=== PATIENT | male | born 1985 | race Caucasian/White ===

== ENCOUNTER 2018-12-23 14:24 | Emergency (ER) | payer BC ==
[2018-12-23 14:30] VITALS: BMI 27.2
[2018-12-23 17:12] LABS: BASO % 0.6 % (0-2.0); EOS % 1.9 % (0-4.5); HEMATOCRIT 45.2 % (35.4-49); HEMOGLOBIN 14.5 GM/dL (11.7-16.9); LYMPH % 23.9 % (8-40); MCH 24.5 pg (25.7-33.7); MCHC 32.1 g/dl (32.0-35.9); MEAN CELL VOLUME 76.1 fl (80-96); MEAN PLT VOLUME 9.6 fl (7.5-11.1); MONO % 10.5 % (3.8-10.2); NEUT % 63.1 % (42.8-82.8); PLATELET COUNT 235 K/MM3 (134-434); RBC 5.95 M/mm3 (4.00-5.60); RDW 15.2 % (11.9-15.9); WHITE BLOOD COUNT 5.2 K/mm3 (4.0-10.0)
--- NOTE | 2018-12-23 17:19 | PDOC ---
History of Present Illness - General Chief Complaint: Pain Stated Complaint: ABD PAIN/BACK PAIN Time Seen by Provider: 12/23/18 15:50 History Source: Patient Exam Limitations: Language Barrier ([employer] [id number]) Past History - Past Medical History Allergies/Adverse Reactions: Allergies Allergy/AdvReac Type Severity Reaction Status Date / Time No Known Allergies Allergy Verified 12/23/18 14:30 Home Medications: Ambulatory Orders NK [No Known Home Medication] 12/23/18 COPD: No - Psycho Social/Smoking Cessation Hx Smoking History: Never smoked Information on smoking cessation initiated: No Hx Alcohol Use: No Drug/Substance Use Hx: No Review of Systems - Review of Systems Able to Perform ROS?: Yes Is the patient limited Cymro proficient: Yes *Physical Exam - Vital Signs Last Vital Signs Temp Pulse Resp BP Pulse Ox 98.4 F 96 H 19 136/77 99 12/23/18 14:29 12/23/18 14:29 12/23/18 14:29 12/23/18 14:29 12/23/18 14:29 ED Treatment Course - LABORATORY CBC & Chemistry Diagram: 12/23/18 16:55 12/23/18 16:55 Medical Decision Making - Medical Decision Making 12/23/18 17:18 HPI: 33M no PMH presenting w/ abdominal pain for 1 day and 3 weeks of upper back pain. Abdominal pain described as increasing in pain, colicky, and covers entire abdomen but worse on right. Endorses SHANEKA and nausea, +etoh use (5 beers/ day). Denies f/c, vomiting, diarrhea, dysuria. No prior abdomen surgery. Pt endorses eating out frequently, and daughter are sick. Upper back pain only present when patient coughs or sneezes. No recent trauma or falls. No numbness/tingling. No chest pain or SOB. PMH: denies No PCP SH: etoh (5 beer / day), denies other drugs, not current smoker ROS: CONSTITUTIONAL: Denies F / C RESP: Denies SOB CARD: Denies chest pain, palpitations GI: see HPI : see HPI; endorses 1 year of nocturia NEURO: Denies numbness, tingling, weakness PE: GEN: NAD, comfortable. AAOx3 HEENT: NC/AT, EOMI. No facial asymmetry. Normal voice. Supple neck w/ FROM. CV: S1/S2, RRR, no m/r/g LUNG: CTAB, no wheezes, crackles, rales, rhonchi. GI: +RCVAT. +TTP LLQ, epigastrum, RUQ, RLQ; worse in RUQ. +BS. ND. EXTREMITIES: No LE edema. No obvious deformities of all extremities. SKIN: warm, dry, normal turgor PSYCH: normal mood and affect NEURO: Moving all extremities well. BACK: + midline and paraspinal TTP in thoracic/lumbar region. No step-offs. MDM: 33M w/o known PMH presenting with 1 day of abdomen pain. Endorses 5 beers a day. DDx cholecystitis, pancreatitis, renal stone Given chronicity of back symptoms and fact they are not generally not present, low suspicion of acute process. Abdominal Pain - cbc, cmp, lipase, amylase - RUQ US - consider CT - IV fluids, pain control, zofran 12/23/18 18:19 Patient reassessed, pain decreased subjectively and on exam; still present Labs reviewed, reassuring and not concerning for pancreatitis, cholecystitis, or infection/inflammation - obtain CT A/P 12/23/18 20:23 CT report demonstrates no acute pathology Patient states decreasing abdomen pain DC home w/ return precautions and referral to [facility]. Discharge - Discharge Information Problems reviewed: Yes Clinical Impression/Diagnosis: Abdominal pain Qualifiers: Abdominal location: right upper quadrant Qualified Code(s): R10.11 - Right upper quadrant pain Condition: Improved - Follow up/Referral - Patient Discharge Instructions Patient Printed Discharge Instructions: DI for Abdominal Pain-Adult Additional Instructions: You were seen and examined in the Emergency Department. You may take tylenol or motrin for pain. You may try to eat small bites and progress as you can. Please call [phone] and make an appointment with the [facility]. Follow up with these primary care doctors in the next 3 days. IMMEDIATELY return to the ED if you experience any of the following: - increasing abdominal pain - inability to eat or drink - severe vomiting - ANYTHING that concerns you Fuiste visto y examinado en el departamento de emergencias. Puede adiel tylenol o motrin para el dolor. Puede intentar comer bocados pequeos y progresar lo ms que pueda. Llame al [phone] y edward yaneth chava con el [facility]. Edward un seguimiento con estos mdicos de atencin primaria en los prximos 3 walker. INMEDIATAMENTE regrese al ED si experimenta alguno de los siguientes sntomas: - aumento del dolor abdominal - incapacidad para comer o beber - vmitos severos - CUALQUIER COSA que te preocupe - Post Discharge Activity Work/Back to School Note: Back to Work
[2018-12-23] MEDS ORDERED: ACETAMINOPHEN 1000 MG/100 ML VIAL (NON FORMULARY) IVPB ONE (17:24)
[2018-12-23] MEDS ORDERED: SODIUM CHLORIDE 0.9% 500 ML INFUS.BAG IV ONE (17:24)
[2018-12-23] MEDS ORDERED: ONDANSETRON 4 MG/2 ML VIAL IVPUSH ONE (17:24)
[2018-12-23] MEDS ORDERED: ONDANSETRON 4 MG/2 ML VIAL ONE (17:28)
[2018-12-23] MEDS ORDERED: ACETAMINOPHEN INJECTION 100 ML IVPB ONE (17:28)
[2018-12-23 17:42] LABS: ALBUMIN 4.4 g/dl (3.4-5.0); BILIRUBIN,TOTAL 1.1 mg/dL (0.2-1); BLOOD UREA NITROGEN 15.3 mg/dL (7-18); CALCIUM 9.6 mg/dL (8.5-10.1); CREATININE 0.9 mg/dL (0.55-1.3); POTASSIUM 4.4 mmol/L (3.5-5.1)
[2018-12-23 17:55] LABS: URINE APPEARANCE Clear; URINE BILIRUBIN Negative (NEGATIVE); URINE COLOR Yellow; URINE GLUCOSE (UA) Negative (NEGATIVE); URINE KETONE Negative (NEGATIVE); URINE LEUK ESTERASE Negative (NEGATIVE); URINE NITRITE Negative (NEGATIVE); URINE PROTEIN Negative (NEGATIVE); URINE UROBILINOGEN 0.2 mg/dL (0.2-1.0)
[2018-12-23 18:21] LABS: EPI CELLS 1 /HPF (0-5/HPF); URINE RBC 2 /hpf (0-4); URINE WBC 1 /hpf (0-5)
--- NOTE | 2018-12-23 19:27 | PDOC ---
Documentation entered by Nelly Montalvo SCRIBE, acting as scribe for Manju Honeycutt MD. Manju Honeycutt MD: This documentation has been prepared by the [place] Brenda, SCRIBE, under my direction and personally reviewed by me in its entirety. I confirm that the documentation accurately reflects all work, treatment, procedures, and medical decision making performed by me. Attending Attestation - Resident Resident Name: Raymond Damon - ED Attending Attestation I have performed the following: I have examined & evaluated the patient, The case was reviewed & discussed with the resident, I agree w/resident's findings & plan, Exceptions are as noted - HPI HPI: 12/23/18 17:24 33-year-old male presents with nausea and vomiting. He denies any significant past medical history. He does drink on a daily basis. He said 1 day of upper abdominal pain but 3-week history of low back pain Allergies: NKA Past surgical history: None reported PCP: Brandon - Physicial Exam PE: 12/23/18 19:25 33 yo male p/w abdominal exam associated with nausea an vomiting head ncat neck supple lungs cta b/l cvs [id number] abd epigastric tenderness skin warm and dry neuro conversant,moving all limbs 12/23/18 21:03 - Medical Decision Making 12/23/18 19:27 ct scan pending 12/23/18 19:39 diff diag includes etoh gastritis,appendicitis 12/23/18 21:03 labs unremarkab;e ct scan abs/pel negative for any acute appendicitis imp nausea and vomiting/ much improved and will be discharged home
[2018-12-23 20:30] VITALS: TEMP 97.7
[2018-12-23 21:07] VITALS: BP 118/89; PULSE 86
== END 2018-12-23 21:07 | disposition home or self-care (01) ==
LOC: JER 14:24
PROC: 3E033GC Introduction of Other Therapeutic Substance into Peripheral Vein, Percutaneous Approach (ICD-10-PCS; principal; 2018-12-23)
PROC: 3E033NZ Introduction of Analgesics, Hypnotics, Sedatives into Peripheral Vein, Percutaneous Approach (ICD-10-PCS; 2018-12-23)
DX: R10.11 Right upper quadrant pain (principal); F10.10 Alcohol abuse, uncomplicated
CPT/HCPCS: 36415; 74177-TC; 80053; 81003; 82150; 83690; 85025; 99284-25; J0131

== ENCOUNTER 2020-02-20 02:52 | Emergency (ER) | payer BC ==
[2020-02-20 03:16] VITALS: BMI 27.2
[2020-02-20] MEDS ORDERED: KETOROLAC TROMETHAMINE 30 MG/1 ML VIAL IM ONE (04:13)
[2020-02-20] MEDS ORDERED: LIDOCAINE 5% TOPICAL PATCH TP ONE (04:14)
[2020-02-20] MEDS ORDERED: LIDOCAINE 5% TOPICAL PATCH ONE (04:35)
[2020-02-20] MEDS ORDERED: KETOROLAC TROMETHAMINE 30 MG/1 ML VIAL ONE (04:35)
[2020-02-20 06:28] VITALS: BP 117/55; PULSE 63; TEMP 98.7
[2020-02-20] MEDS ORDERED: LIDOCAINE PATCH REMOVAL MC ONE (16:00)
== END 2020-02-20 06:01 | disposition home or self-care (01) ==
LOC: JER 02:52
PROC: 3E0233Z Introduction of Anti-inflammatory into Muscle, Percutaneous Approach (ICD-10-PCS; principal; 2020-02-20)
DX: M54.5 Low back pain (principal)
CPT/HCPCS: 72100-TC-FY; 99284-25

== ENCOUNTER 2021-01-20 12:55 | Emergency (ER) | payer BC ==
[2021-01-20 13:20] VITALS: BP 130/77; PULSE 77; TEMP 97.7; BMI 24.3
[2021-01-20] MEDS ORDERED: KETOROLAC TROMETHAMINE 30 MG/1 ML VIAL IM ONE (14:07)
[2021-01-20] MEDS ORDERED: KETOROLAC TROMETHAMINE 30 MG/1 ML VIAL ONE (14:09)
== END 2021-01-20 14:17 | disposition home or self-care (01) ==
LOC: JERFT 12:55
PROC: 3E0234Z Introduction of Serum, Toxoid and Vaccine into Muscle, Percutaneous Approach (ICD-10-PCS; principal; 2021-01-20)
DX: M54.41 Lumbago with sciatica, right side (principal); X50.0XXA Overexertion from strenuous movement or load, initial encounter
CPT/HCPCS: 99284-25